=== PATIENT | female | born 1950 | race Caucasian/White ===

== ENCOUNTER 2022-10-31 06:00 | Day surgery (SDC) | payer OTHER | END 2022-10-31 12:00 | disposition home or self-care (01) | LOC: AMB-ENDOS 06:00 | PROVIDERS: ATTEND Surgery | DX: D12.0 Benign neoplasm of cecum (principal); K57.30 Diverticulosis of large intestine without perforation or abscess without bleeding; R19.4 Change in bowel habit; I10 Essential (primary) hypertension; Z88.6 Allergy status to analgesic agent; Z20.822 Contact with and (suspected) exposure to COVID-19 ==